=== PATIENT | male | born 1975 | race Caucasian/White ===

== ENCOUNTER 2020-07-10 22:00 | Emergency (ER) | payer OTHER ==
[~2020-07-10] VITALS: Ht 193 cm; Wt 98.7 kg
[2020-07-10 22:03] VITALS: BP 175/91
[2020-07-10] MEDS ORDERED: LIDOCAINE-MPF 1%, 5ML ONE (23:23)
[2020-07-10] MEDS ORDERED: LIDOCAINE 2%, 20ML SQ ONE (23:30)
[2020-07-11 00:02] LABS: BASOPHILS % (AUTO) 0 % (0-1); EOSINOPHILS % (AUTO) 4 % (1-7); LYMPHOCYTES % (AUTO) 11 % (22-44); MEAN CORPUSCULAR HGB CONC 34.2 g/dL (33.2-36.2); MEAN PLATELET VOLUME 7.2 fL (7.4-10.4); MONOCYTES % (AUTO) 6 % (2-9); NEUTROPHILS % (AUTO) 79 % (42-75); PLATELET COUNT 240 x10^3/uL (130-400); RED BLOOD COUNT 5.32 x10^6/uL (4.38-5.82); RED CELL DISTRIBUTION WIDTH 12.9 % (9.4-14.8)
[2020-07-11 00:03] LABS: ALBUMIN 3.7 g/dL (3.4-5.0); ANION GAP 5 mmol/L (5-15); CHLORIDE 102 mmol/L (98-107); CREATININE 0.95 mg/dL (0.7-1.3)
[2020-07-11 00:09] LABS: MD NO
[2020-07-11] MEDS ORDERED: NEOSPORIN OINT. PKT 1 PACKET ONE (00:21)
[2020-07-11] MEDS ORDERED: SULFAMETH./TRIMETHOPRIM DS 800MG/160MG TABLET ONE (00:39)
[2020-07-11] MEDS ORDERED: CEFTRIAXONE 1,000 MG ONE (00:40)
[2020-07-11] MEDS ORDERED: SULFAMETH./TRIMETHOPRIM DS 800MG/160MG TABLET PO ONE (01:00)
[2020-07-11] MEDS ORDERED: CEFTRIAXONE 1,000 MG IM ONE (01:00)
== END 2020-07-11 01:01 | disposition home or self-care (01) ==
LOC: ED 23:54
DX: L03.115 Cellulitis of right lower limb (principal); R73.9 Hyperglycemia, unspecified
CPT/HCPCS: 10060; 36415; 73660; 80048; 82040; 85025; 96372; 99284; J0696

== ENCOUNTER 2020-09-07 21:17 | Emergency (ER) | payer SELFPAY ==
[~2020-09-07] VITALS: Ht 193 cm; Wt 100.0 kg
[2020-09-07 23:26] LABS: ANION GAP 6 mmol/L (5-15); CHLORIDE 104 mmol/L (98-107); CREATININE 0.71 mg/dL (0.7-1.3)
[2020-09-07 23:45] LABS: BASOPHILS % (AUTO) 0 % (0-1); EOSINOPHILS % (AUTO) 4 % (1-7); LYMPHOCYTES % (AUTO) 15 % (22-44); MEAN CORPUSCULAR HEMOGLOBIN 28.1 pg (27.5-34.5); MEAN CORPUSCULAR HGB CONC 34.7 g/dL (33.2-36.2); MONOCYTES % (AUTO) 9 % (2-9); NEUTROPHILS % (AUTO) 72 % (42-75); PLATELET COUNT 277 x10^3/uL (130-400); RED BLOOD COUNT 4.88 x10^6/uL (4.38-5.82); RED CELL DISTRIBUTION WIDTH 12.6 % (9.4-14.8)
[2020-09-07 23:57] LABS: MD NO
--- NOTE | 2020-09-08 | NUR ---
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
--- NOTE | 2020-09-08 00:10 | NUR ---
pt to room 1, via wc, difficulty walking. right big toe bandaged. swollen, redness noted, and painful to stand. pt to bed, calm and cooperative.
[2020-09-08] MEDS ORDERED: CLINDAMYCIN PMX 900MG/50ML 50 ML ONE (01:06)
[2020-09-08 01:17] VITALS: BP 133/82
--- NOTE | 2020-09-08 01:18 | NUR ---
to see pt. piv started to right arm x1 attempt. IV antibiotics started to run over one hour. then dc
[2020-09-08] MEDS ORDERED: CLINDAMYCIN PMX 900MG/50ML 50 ML IV ONE (01:30)
--- NOTE | 2020-09-08 02:27 | NUR ---
antibiotics done. piv d/c'd, cath intact. d/c and medication instructions given to pt and he verbalized understanding. ambulating with difficulty and d/c'd in wheelchair.
== END 2020-09-08 02:30 | disposition home or self-care (01) ==
LOC: ED 09-08 01:49
DX: L03.031 Cellulitis of right toe (principal); E11.65 Type 2 diabetes mellitus with hyperglycemia; F17.200 Nicotine dependence, unspecified, uncomplicated
CPT/HCPCS: 36415; 80048; 85025; 96365; 99284

== ENCOUNTER 2020-09-11 12:40 | Emergency (ER) | payer OTHER ==
[~2020-09-11] VITALS: Ht 193 cm; Wt 95.5 kg
[2020-09-11 12:42] VITALS: BP 148/84
--- NOTE | 2020-09-11 13:11 | NUR ---
ERMD IN TO ASSESS PT AND PROVIDE EDUCATION. PLAN FOR WOUND SWAB AND REFERRAL.
== END 2020-09-11 13:47 | disposition home or self-care (01) ==
LOC: ED 13:35
DX: L97.519 Non-pressure chronic ulcer of other part of right foot with unspecified severity (principal); E11.9 Type 2 diabetes mellitus without complications
CPT/HCPCS: 87070; 87077; 87186; 87205; 99283

== ENCOUNTER 2021-01-16 09:17 | Emergency (ER) | payer SELFPAY ==
[~2021-01-16] VITALS: Ht 193 cm; Wt 98.6 kg
[2021-01-16 09:21] VITALS: BP 153/81
--- NOTE | 2021-01-16 09:55 | NUR ---
pt resting patiently on an er gurney while awaiting i&d of wound. no acute changes have been noted since his arrival. and I will continue to monitor and treat as ordered, as well as prn while awaiting tx.
[2021-01-16] MEDS ORDERED: LIDOCAINE-MPF 1%, 2ML ONE (10:00)
[2021-01-16] MEDS ORDERED: LIDOCAINE-MPF 1%, 5ML INFIL ONE (10:00)
[2021-01-16] MEDS ORDERED: CLINDAMYCIN 150 MG/ML, 6ML IM ONE (11:00)
== END 2021-01-16 11:27 | disposition home or self-care (01) ==
LOC: ED 11:21
DX: L02.414 Cutaneous abscess of left upper limb (principal); E11.65 Type 2 diabetes mellitus with hyperglycemia; F17.210 Nicotine dependence, cigarettes, uncomplicated
CPT/HCPCS: 10060; 82962; 96372; 99283; 99406; S0077